=== PATIENT | female | born 1965 | race Caucasian/White ===

== ENCOUNTER 2023-07-15 18:45 | Emergency (ER) | payer MEDICAID ==
[2023-07-15 19:34] LABS: HEMATOCRIT 53.4 % (33.0-47.0); HEMOGLOBIN 17.4 g/dL (12.0-16.0); MEAN CORPUSCULAR HEMOGLOBIN 30.9 pg (26.0-32.0); MEAN CORPUSCULAR HGB CONC 32.6 g/dL (32.0-36.0); MEAN CORPUSCULAR VOLUME 94.7 fL (78.0-93.0); PLATELET COUNT,PLT 237 x10^3/uL (130-400); RED BLOOD CELL COUNT 5.64 x10^6/uL (4.00-5.50); WHITE BLOOD CELL COUNT,WBC 18.6 x10^3/uL (4.0-10.0)
[2023-07-15] MEDS ORDERED: Pantoprazole 40 MG Vial ONE (19:38)
[2023-07-15 19:42] LABS: INR 1.3 (0.9-1.1); PROTHROMBIN TIME 13.9 SEC (9.5-12.2); PTT,PARTIAL THROMBOPLSTIN TIME 34.5 SEC (23.6-33.6)
[2023-07-15 19:51] LABS: APPEARANCE,URINE CLEAR (CLEAR); BILIRUBIN,URINE NEGATIVE (NEGATIVE); COLOR,URINE YELLOW (YELLOW); GLUCOSE,URINE 500 mg/dL (NEGATIVE); KETONES,URINE NEGATIVE (NEGATIVE); LEUKOCYTE ESTERASE,URINE NEGATIVE (NEGATIVE); NITRITE,URINE NEGATIVE (NEGATIVE); OCCULT BLOOD,URINE NEGATIVE (NEGATIVE); PH,URINE 5.5 (5.0-8.0); PROTEIN,URINE NEGATIVE (NEGATIVE); UROBILINOGEN,URINE 0.2 EU/dL (0.2)
[2023-07-15 19:57] LABS: AMPHETAMINES SCREEN, URINE NEGATIVE (NEGATIVE); BARBITURATE SCREEN,URINE NEGATIVE (NEGATIVE); BENZODIAZEPINES SCREEN,URINE NEGATIVE (NEGATIVE); BUPRENORPHINE SCREEN,URINE NEGATIVE (NEGATIVE); COCAINE METABOLITES,URINE NEGATIVE (NEGATIVE); METHADONE SCREEN, URINE NEGATIVE (NEGATIVE); METHAMPHETAMINE SCREEN, URINE NEGATIVE (NEGATIVE); OXYCODONE SCREEN,URINE NEGATIVE (NEGATIVE); PCP SCREEN,URINE NEGATIVE (NEGATIVE); THC SCREEN,URINE 50 NG/ML NEGATIVE (NEGATIVE)
[2023-07-15 19:59] LABS: BASE EXCESS ARTERIAL,POC -18 mmol/L ((-2)-3); O2 SATURATION ARTERIAL,POC 99.2 % (94-98); PCO2 ARTERIAL,POC 50 mmHg (35-48); PH ARTERIAL,POC 7.03 pH (7.35-7.45); PO2 ARTERIAL,POC 208 mmHg (83-108); TCO2 ARTERIAL,POC 13.7 mmol/L (22-29)
[2023-07-15 20:02] LABS: LACTIC ACID 8.6 mmol/L (0.4-2.0)
[2023-07-15 20:04] LABS: BAND PERCENT MAN 14 % (0-6); LYMPHOCYTES PERCENT MAN 32 % (25-50); METAMYELOCYTE PERCENT MAN 1 % (0); MONOCYTES ABSOLUTE MAN 0.6 x10^3/uL (0.0-0.8); MONOCYTES PERCENT MAN 3 % (2-11); MYELOCYTE PERCENT MAN 1 % (0); NEUTROPHILS ABSOLUTE MAN 11.7 x10^3/uL (1.8-7.7); PLATELET COUNT ESTIMATE ADEQUATE; SEG NEUTROPHILS PERCENT MAN 49 % (50-80)
[2023-07-15] MEDS ORDERED: Piperacillin/Tazobactam 4.5 GM Vial ONE (20:04)
[2023-07-15] MEDS ORDERED: Piperacillin/Tazobactam 4.5 GM in Sodium Chloride 0.9% 100 ML IV ONE (20:06)
[2023-07-15 20:07] LABS: A/G RATIO 1.15; ALANINE AMINOTRANSFERASE,ALT 46 U/L (14-59); ALBUMIN 3.8 g/dL (3.4-5.0); ALKALINE PHOSPHATASE 109 U/L (46-116); ASPARTATE AMNIOTRANSFERASE,AST 81 U/L (15-37); BILIRUBIN TOTAL 0.7 mg/dL (0.2-1.0); BLOOD UREA NITROGEN,BUN 34 mg/dL (7-18); CALCIUM 9.7 mg/dL (8.5-10.1); CARBON DIOXIDE,CO2 17 mmol/L (21-32); CHLORIDE,CL 98 mmol/L (98-107); CREATININE 2.1 mg/dL (0.55-1.02); GLUCOSE RANDOM 360 mg/dL (70-99); MAGNESIUM 2.6 mg/dL (1.8-2.4); PROTEIN TOTAL,TP 7.1 g/dL (6.4-8.2); SODIUM,NA 137 mmol/L (136-145); TSH ULTRASENSITIVE 15.867 uIU/mL (0.358-3.74)
[2023-07-15 20:12] LABS: C-REACTIVE PROTEIN < 0.50 mg/dL (<=0.50); ESTIMATED GFR 27 mL/min (>=60)
[2023-07-15 20:33] LABS: CORONAVIRUS COVID-19 NAA NEGATIVE (NEGATIVE)
[2023-07-15 20:34] LABS: INFLUENZA A NAA NEGATIVE (NEGATIVE); INFLUENZA B NAA NEGATIVE (NEGATIVE); RESPIRATORY SYNCYTIAL VIR NAA NEGATIVE (NEGATIVE)
[2023-07-15] MEDS ORDERED: fentaNYL 100 MCG/2 ML SDV ONE (21:21)
[2023-07-15] MEDS ORDERED: Midazolam 1 MG/ML 2 ML SDV ONE (21:21)
[2023-07-15] MEDS ORDERED: Etomidate 2 MG/ML 10 ML SDV ONE ×2 (21:21→21:22)
[2023-07-15] MEDS ORDERED: Norepinephrine Bit/D5W Premix 250 ML ONE (21:52)
[2023-07-15] MEDS ORDERED: Sodium Bicarbonate 8.4% 50 MEQ/50 ML Syringe ONE (21:52)
== END 2023-07-15 21:02 | disposition short-term general hospital (02) ==
LOC: VM.ED 18:45
DX: A41.9 Sepsis, unspecified organism (principal); J96.90 Respiratory failure, unspecified, unspecified whether with hypoxia or hypercapnia
CPT/HCPCS: 0241U; 31500; 36415; 36600; 43752; 51702; 71045; 80053; 80305; 81003; 82803; 83605; 83735; 84443; 84484; 85025; 85610; 85730; 86140; 87040; 93010; 94002; 96365; 96375; 99284; 99291; 99292

== ENCOUNTER 2023-09-17 16:52 | Inpatient (IN) | payer MEDICAID ==
[2023-09-17 17:26] LABS: BASOPHILS PERCENT AUTO 0.5 % (0.2-1.2); EOSINOPHILS ABSOLUTE AUTO 0.2 x10^3/uL (0.0-0.5); EOSINOPHILS PERCENT AUTO 2.5 % (0.0-4.0); HEMATOCRIT 30.4 % (33.0-47.0); HEMOGLOBIN 10.1 g/dL (12.0-16.0); IMMATURE GRAN ABSOLUTE AUTO 0.04 x10^3/uL (0.00-0.07); LYMPHOCYTES ABSOLUTE AUTO 2.7 x10^3/uL (1.0-4.8); LYMPHOCYTES PERCENT AUTO 42.3 % (25.0-50.0); MEAN CORPUSCULAR HGB CONC 33.2 g/dL (32.0-36.0); MEAN CORPUSCULAR VOLUME 90.2 fL (78.0-93.0); MONOCYTES ABSOLUTE AUTO 0.6 x10^3/uL (0.0-0.8); MONOCYTES PERCENT AUTO 10.1 % (2.0-11.0); NEUTROPHILS ABSOLUTE AUTO 2.8 x10^3/uL (1.8-7.7); PLATELET COUNT,PLT 285 x10^3/uL (130-400); RED BLOOD CELL COUNT 3.37 x10^6/uL (4.00-5.50); WHITE BLOOD CELL COUNT,WBC 6.3 x10^3/uL (4.0-10.0)
[2023-09-17 17:43] LABS: A/G RATIO 0.66; ALANINE AMINOTRANSFERASE,ALT 35 U/L (14-59); ALBUMIN 2.7 g/dL (3.4-5.0); ALKALINE PHOSPHATASE 160 U/L (46-116); ASPARTATE AMNIOTRANSFERASE,AST 30 U/L (15-37); BILIRUBIN TOTAL 0.2 mg/dL (0.2-1.0); BLOOD UREA NITROGEN,BUN 19 mg/dL (7-18); C-REACTIVE PROTEIN 5.49 mg/dL (<=0.50); CALCIUM 9.1 mg/dL (8.5-10.1); CARBON DIOXIDE,CO2 23 mmol/L (21-32); CHLORIDE,CL 100 mmol/L (98-107); GLUCOSE RANDOM 172 mg/dL (70-99); POTASSIUM,K 4.3 mmol/L (3.5-5.1); PROTEIN TOTAL,TP 6.8 g/dL (6.4-8.2); SODIUM,NA 135 mmol/L (136-145)
[2023-09-17 17:45] LABS: ANION GAP 16.3 mmol/L (5-15); ESTIMATED GFR 65 mL/min (>=60)
[2023-09-17] MEDS: Sodium Chloride 0.9% 1,000 ML IV ONE (18:15)
[2023-09-17] MEDS: cefTRIAXone 1 GM Vial IVPUSH ONE (18:15)
[2023-09-17] MEDS: Iopamidol 612 MG/ML 100 ML Bottle IVPUSH ONE (19:22)
[2023-09-17] MEDS ORDERED: LORazepam 0.5 MG Tab PO PRN (21:37)
[2023-09-17] MEDS ORDERED: Ondansetron 4 MG/2 ML SDV IV PRN (21:40)
[2023-09-17] MEDS ORDERED: Ondansetron 4 MG Tab.DIS PO PRN (21:40)
[2023-09-17] MEDS: oxyCODONE 5 MG Tab PO PRN (22:34)
[2023-09-17] MEDS: Apixaban 2.5 MG Tab PO ONE (22:36)
[2023-09-17] MEDS: Pregabalin 50 MG Cap PO ONE (22:36)
[2023-09-17] MEDS: Sodium Chloride 0.9% 1,000 ML IV SCH (22:37)
[2023-09-17] MEDS: Piperacillin/Tazobactam 4.5 GM in Sodium Chloride 0.9% 100 ML IV ONE (23:32)
[2023-09-18] MEDS: HYDROmorphone 0.5 MG/0.5 ML Syringe IVPUSH PRN (05:04)
[2023-09-18] MEDS ORDERED: Piperacillin/Tazobactam 3.375 GM in Sodium Chloride 0.9% 100 ML IV SCH (06:00)
[2023-09-18] MEDS: Piperacillin/Tazobactam 3.375 GM in Sodium Chloride 0.9% 100 ML IV ONE (06:01)
[2023-09-18 07:56] LABS: BASOPHILS PERCENT AUTO 0.2 % (0.2-1.2); EOSINOPHILS ABSOLUTE AUTO 0.3 x10^3/uL (0.0-0.5); EOSINOPHILS PERCENT AUTO 4.8 % (0.0-4.0); HEMOGLOBIN 10.2 g/dL (12.0-16.0); IMMATURE GRAN ABSOLUTE AUTO 0.04 x10^3/uL (0.00-0.07); LYMPHOCYTES ABSOLUTE AUTO 2.8 x10^3/uL (1.0-4.8); LYMPHOCYTES PERCENT AUTO 46.6 % (25.0-50.0); MEAN CORPUSCULAR HEMOGLOBIN 29.8 pg (26.0-32.0); MEAN CORPUSCULAR HGB CONC 32.9 g/dL (32.0-36.0); MEAN CORPUSCULAR VOLUME 90.6 fL (78.0-93.0); MONOCYTES ABSOLUTE AUTO 0.5 x10^3/uL (0.0-0.8); MONOCYTES PERCENT AUTO 8.2 % (2.0-11.0); NEUTROPHILS ABSOLUTE AUTO 2.4 x10^3/uL (1.8-7.7); NEUTROPHILS PERCENT AUTO 39.5 % (50.0-80.0); PLATELET COUNT,PLT 285 x10^3/uL (130-400); RED BLOOD CELL COUNT 3.42 x10^6/uL (4.00-5.50); WHITE BLOOD CELL COUNT,WBC 6.1 x10^3/uL (4.0-10.0)
[2023-09-18 08:08] LABS: ANION GAP 14.5 mmol/L (5-15); CALCIUM 8.9 mg/dL (8.5-10.1); CREATININE 0.8 mg/dL (0.55-1.02); EST CRCL DRUG DOSING (CG) 66.19 mL/min; POTASSIUM,K 4.5 mmol/L (3.5-5.1)
[2023-09-18] MEDS: Sodium Chloride 0.9% 1,000 ML IV SCH (08:56)
[2023-09-18] MEDS ORDERED: Magnesium Hydroxide 400 MG/5 ML Susp 30 ML Cup PO PRN (08:58)
[2023-09-18] MEDS ORDERED: Methocarbamol 500 MG Tab PO PRN (08:58)
[2023-09-18] MEDS ORDERED: LORazepam 0.5 MG Tab PO PRN (09:14)
[2023-09-18] MEDS: Aspirin 81 MG Tab.EC PO SCH (09:30)
[2023-09-18] MEDS: buPROPion 150 MG Tab.ER PO SCH (09:30)
[2023-09-18] MEDS: DULoxetine 30 MG Cap PO SCH (09:30)
[2023-09-18] MEDS: Cholecalciferol (Vitamin D3) 25 MCG Tab PO SCH (09:30)
[2023-09-18] MEDS: Pregabalin 50 MG Cap PO SCH (09:32)
[2023-09-18] MEDS: Apixaban 2.5 MG Tab PO SCH (09:32)
[2023-09-18] MEDS: Acetaminophen 500 MG Tab PO PRN (15:59)
[2023-09-18] MEDS: Piperacillin/Tazobactam 4.5 GM in Sodium Chloride 0.9% 100 ML IV SCH (20:09)
[2023-09-18] MEDS: Simvastatin 10 MG Tab PO SCH (20:18)
[2023-09-18] MEDS: Amitriptyline 10 MG Tab PO SCH (20:19)
[2023-09-19] MEDS: Omeprazole 20 MG Cap.CR PO SCH (06:30)
[2023-09-19] MEDS: Levothyroxine 25 MCG Tab PO SCH (06:48)
[2023-09-19 08:21] LABS: BASOPHILS PERCENT AUTO 0.4 % (0.2-1.2); EOSINOPHILS ABSOLUTE AUTO 0.3 x10^3/uL (0.0-0.5); EOSINOPHILS PERCENT AUTO 6.7 % (0.0-4.0); HEMATOCRIT 27.9 % (33.0-47.0); HEMOGLOBIN 9.2 g/dL (12.0-16.0); IMMATURE GRAN ABSOLUTE AUTO 0.05 x10^3/uL (0.00-0.07); LYMPHOCYTES ABSOLUTE AUTO 1.9 x10^3/uL (1.0-4.8); LYMPHOCYTES PERCENT AUTO 39.9 % (25.0-50.0); MEAN CORPUSCULAR HEMOGLOBIN 30.2 pg (26.0-32.0); MEAN CORPUSCULAR VOLUME 91.5 fL (78.0-93.0); MONOCYTES ABSOLUTE AUTO 0.5 x10^3/uL (0.0-0.8); MONOCYTES PERCENT AUTO 10.1 % (2.0-11.0); NEUTROPHILS PERCENT AUTO 41.8 % (50.0-80.0); PLATELET COUNT,PLT 231 x10^3/uL (130-400); RED BLOOD CELL COUNT 3.05 x10^6/uL (4.00-5.50); WHITE BLOOD CELL COUNT,WBC 4.8 x10^3/uL (4.0-10.0)
[2023-09-19 08:32] LABS: A/G RATIO 0.62; ALBUMIN 2.3 g/dL (3.4-5.0); ANION GAP 14.6 mmol/L (5-15); BILIRUBIN TOTAL 0.2 mg/dL (0.2-1.0); CALCIUM 8.7 mg/dL (8.5-10.1); CREATININE 0.7 mg/dL (0.55-1.02); EST CRCL DRUG DOSING (CG) 75.65 mL/min; POTASSIUM,K 4.6 mmol/L (3.5-5.1)
[2023-09-19] MEDS: Piperacillin/Tazobactam 4.5 GM in Sodium Chloride 0.9% 100 ML IV SCH (16:09)
[2023-09-20 07:13] LABS: BASOPHILS PERCENT AUTO 0.6 % (0.2-1.2); EOSINOPHILS ABSOLUTE AUTO 0.4 x10^3/uL (0.0-0.5); EOSINOPHILS PERCENT AUTO 6.9 % (0.0-4.0); HEMATOCRIT 27.1 % (33.0-47.0); HEMOGLOBIN 8.9 g/dL (12.0-16.0); IMMATURE GRAN ABSOLUTE AUTO 0.08 x10^3/uL (0.00-0.07); LYMPHOCYTES ABSOLUTE AUTO 2.3 x10^3/uL (1.0-4.8); LYMPHOCYTES PERCENT AUTO 43.4 % (25.0-50.0); MEAN CORPUSCULAR HEMOGLOBIN 29.9 pg (26.0-32.0); MEAN CORPUSCULAR HGB CONC 32.8 g/dL (32.0-36.0); MEAN CORPUSCULAR VOLUME 90.9 fL (78.0-93.0); MONOCYTES ABSOLUTE AUTO 0.5 x10^3/uL (0.0-0.8); MONOCYTES PERCENT AUTO 9.7 % (2.0-11.0); NEUTROPHILS PERCENT AUTO 37.9 % (50.0-80.0); PLATELET COUNT,PLT 239 x10^3/uL (130-400); RED BLOOD CELL COUNT 2.98 x10^6/uL (4.00-5.50); WHITE BLOOD CELL COUNT,WBC 5.4 x10^3/uL (4.0-10.0)
[2023-09-20 07:31] LABS: CALCIUM 9.1 mg/dL (8.5-10.1); CREATININE 0.7 mg/dL (0.55-1.02); EST CRCL DRUG DOSING (CG) 75.65 mL/min; POTASSIUM,K 4.8 mmol/L (3.5-5.1)
[2023-09-20 07:38] LABS: ANION GAP 12.8 mmol/L (5-15)
[2023-09-25] MEDS ORDERED: Levothyroxine 25 MCG Tab PO SCH (07:00)
== END 2023-09-20 12:25 | disposition swing bed (61) | DRG 592 ==
LOC: VM.ED 16:52 → VM.MS 20:19
PROVIDERS: ADMIT Internal Medicine; ATTEND Internal Medicine
DX: L89.153 Pressure ulcer of sacral region, stage 3 (principal); J18.9 Pneumonia, unspecified organism; L03.317 Cellulitis of buttock; L03.312 Cellulitis of back [any part except buttock and flank]; E44.1 Mild protein-calorie malnutrition; E78.00 Pure hypercholesterolemia, unspecified; I10 Essential (primary) hypertension; K21.9 Gastro-esophageal reflux disease without esophagitis; M10.9 Gout, unspecified; F41.9 Anxiety disorder, unspecified; F32.A Depression, unspecified; E11.9 Type 2 diabetes mellitus without complications; E03.9 Hypothyroidism, unspecified; E66.9 Obesity, unspecified; R22.2 Localized swelling, mass and lump, trunk; D64.9 Anemia, unspecified; N28.89 Other specified disorders of kidney and ureter; Z98.890 Other specified postprocedural states; Z93.3 Colostomy status; Z79.01 Long term (current) use of anticoagulants; Z79.84 Long term (current) use of oral hypoglycemic drugs; Z79.82 Long term (current) use of aspirin; Z79.899 Other long term (current) drug therapy; Z90.49 Acquired absence of other specified parts of digestive tract; T81.30XD Disruption of wound, unspecified, subsequent encounter; Z68.33 Body mass index [BMI] 33.0-33.9, adult
CPT/HCPCS: 36415; 74177; 80048; 80053; 82728; 82947; 83605; 84145; 85025; 86140; 87040; 96361; 96374; 97162-GP; 99284; 99285-25; A9270-GY; J0696; J1170; J2543; J3490; J7030; Q9967